=== PATIENT | female | born 2000 | race Caucasian/White ===

== ENCOUNTER 2019-09-28 14:25 | Inpatient (IN) | payer OTHER ==
[~2019-09-28] VITALS: Ht 175.3 cm; Wt 97.1 kg
[~2019-09-28 14:25] MED LIST: ACETAMINOPHEN-1 EAC1 PO; BACTRIM DS TAB1 EACH PO; CEFTIN500 MG PO; CIPRO500 MG PO; CLARITIN10 MG PO; FAMOTIDINE PO; IBUPROFEN 600600 M1 PO; IBUPROFEN200 M2; KEFLEX500 M1 PO; KEFLEX500 MG PO; LACTASE 3000U T1 TA1; MEDROL DOSPAK21 TA1 PO; NORCO 5-325 TA1 EACH PO; PHENERGAN 25 MG25 M1 PO; ZOFRAN ODT4 MG PO
[2019-09-28 14:30] VITALS: BP 123/75
--- NOTE | 2019-09-28 18:35 | NUR ---
[age] YEAR OLD FEMALE ADMITTED FOR RIGHT FOOT WOUND. PT ALERT AND ORIENTED TIMES FOUR. VSS, 100%RA. PT C/O PAIN PRN PAIN MEDICATION GIVEN WITH GOOD RELEIF. PT UP TO BSC WITH ASSIST OF ONE. PT WILL BE NPO AT MIDNIGHT FOR SURGERY IN THE MORNING. PT MOM AT BEDSIDE. WILL CONTINUE TO MONITOR.
[2019-09-28 19:22] VITALS: BP 118/55
[2019-09-28 23:44] VITALS: BP 108/55
[2019-09-29 03:36] VITALS: BP 103/52
[2019-09-29 05:56] LABS: ABSOLUTE NEUTROPHILS 16.5 thou/uL (1.4-8.2); BASOPHILS 0.2 % (0.0-2.0); EOSINOPHILS 0.1 % (0.0-3.0); HEMATOCRIT 32.7 % (37.0-47.0); HEMOGLOBIN 10.8 gm/dL (12.0-15.0); LYMPHOCYTES 5.9 % (24.0-44.0); MONOCYTES 8.9 % (1.0-8.0); PLATELET COUNT 274 thou/uL (150-400); POLYS 84.9 % (36.0-66.0); RBC 3.85 mil/uL (4.20-5.00); RDW 13.4 % (10.5-14.5); WBC 19.5 thou/uL (4.0-11.0)
[2019-09-29 06:07] LABS: CALCIUM 8.4 mg/dL (8.5-10.1); CREATININE 0.6 mg/dL (0.6-1.0); MAGNESIUM 1.9 mg/dL (1.8-2.4); POTASSIUM 3.7 mmol/L (3.5-5.1)
--- NOTE | 2019-09-29 06:34 | NUR ---
ASSUMED CARE AT 1900. PT VERY DROWSY, AROUSEABLE BUT WOULD DRIFT OFF WHILE NURSE SPEAKING TO HER. RIGHT FOOT WOUND VERY WARM AND PINK, WITH 2+ EDEMA; YELLOW WEEPING FROM WOUND ONTO THE DRESSING; PT C/O SEVERE TENDERNESS TO TOUCH. GAVE TRAMADOL ONCE AND IV FENTANYL ONCE. DENIED NAUSEA OR SOB. NPO AT MIDNIGHT FOR ORTHO PROCEDURE THIS AM. NO OTHER CONCERNS, WILL CONTINUE TO MONITOR.
[2019-09-29 07:40] VITALS: BP 117/67
[2019-09-29 15:41] VITALS: BP 103/60
--- NOTE | 2019-09-29 19:34 | NUR ---
ASSISTED PATIENT CARE AT 0700. A/O X4. NO LOOSE STOOL ON THIS SHFIT. STANDBY TO BSC. DENIES PAIN. PROGRESSING TOWARDS POC GOALS.
--- NOTE | 2019-09-29 19:37 | NUR ---
ASSUMED PATIENT CARE AT 0700. A/O X4. PATIENT HAD RIGHT FOOT I&D TODAY AND HAD HBO TREATMENT. PAIN MEDS GIVEN NEEDS. STANDBY TO BSC. RIGHT FOOT ELEVATED. SLOWLY TOWARDS POC GOALS.
[2019-09-29 19:55] VITALS: BP 110/66
[2019-09-29 23:10] LABS: GLYCOHEMOGLOBIN (HGB A1C) 5.6 % (4.8-5.6)
[2019-09-29 23:30] VITALS: BP 113/69
--- NOTE | 2019-09-30 02:03 | NUR ---
PATIENT IS ALERT AND ORIENED. PATIENTS PAIN IS CONTROLLED WITH PAIN MEDICATION. PATIENT PIVIOTS TO BSC. NWB ON RIGHT FOOT. PATIENTS LBM WAS THE 4TH. PATIENT IS RESTING COMFORTABLY IN BED. WCM. PATIENT IS PROGRESSING TO GOALS.
[2019-09-30 03:50] VITALS: BP 107/71
[2019-09-30 06:06] LABS: HEMATOCRIT 31.6 % (37.0-47.0); HEMOGLOBIN 10.1 gm/dL (12.0-15.0); MCH 27.4 pg (26.0-34.0); MCHC 32.1 g/dL (28.0-37.0); MCV 85.4 fL (80.0-100.0); RBC 3.7 mil/uL (4.20-5.00); RDW 13.7 % (10.5-14.5); WBC 17.2 thou/uL (4.0-11.0)
[2019-09-30 06:16] LABS: CALCIUM 8.2 mg/dL (8.5-10.1); CREATININE 0.5 mg/dL (0.6-1.0); POTASSIUM 4.1 mmol/L (3.5-5.1)
[2019-09-30 07:33] VITALS: BP 114/77
--- NOTE | 2019-09-30 11:54 | NUR ---
Nutrition: Assessed due to admitting diagnosis of R foot wound w/ necrotizing fasciitis. Hx tobacco abuse. She is s/p I&D on 09/29 to muscle of R foot wounds and received a HBO treatment. On a regular diet and eating extremely well. 100% of all meals thus far. Educated pt on heightened protein goals, ideally eating 2 protein sources/meal. Explained what counts as protein; pt already aware of protein foods. Also encouraged fruits/vegetables for increased vitamin C intake. Recent 09/29. Pt had no further nutrition questions/concerns. Now informed about alternative menu items if needed. Low nutrition risk.
--- NOTE | 2019-09-30 13:06 | O ---
[facility] [place] [address] OPERATIVE REPORT Name: DRISS FAGAN Room #: 350-P ADM IN M.R.#: [id number] Admission: 09/28/19 Attend Phys: Adrian Chapa MD Discharge: Date of : 99 Report #: [id number] THIS REPORT FOR: //name// CC: GEMINI physician/PCP Adrian Chapa DATE OF SERVICE: 09/29/2019 SERVICE: Orthopedics. FACILITY: [place]. SURGEON: Pascual Bonilla M.D. BALLOON TESTER: Bharati Cavanaugh NP. PREOPERATIVE DIAGNOSES: 1. Right foot abscess. 2. Status post right foot I and D. 3. Possible necrotizing fasciitis, right foot. 4. Cellulitis, right foot and leg. POSTOPERATIVE DIAGNOSES: 1. Right foot abscess. 2. Status post right foot I and D. 3. Possible necrotizing fasciitis, right foot. 4. Cellulitis, right foot and leg. PROCEDURE: Irrigation and debridement down to muscle layer of right foot wound measuring 15 cm x 8 cm as well as second wound measuring 4 cm x 3 cm for a total surface area of 132 square cm. COMPLICATIONS: None. DRAINS: None. SPECIMENS: Tissue sent for permanent culture. FINDINGS: No purulence, no signs of progressive necrosis. HISTORY: The patient is a 19-year-old female who injured her right foot when she dropped a mirror on it about 6-7 days ago. She was treated initially with oral antibiotics when she had some wound issues and then she presented to the [facility] Emergency Room 2 days ago and was taken to the operating room on 09/27/2019 for emergent I and D of her right foot for concerns of necrotizing fasciitis. She had 3 incisions and she had [place] drains placed [facility] [address] [place] [address] OPERATIVE REPORT Name: RYLANDRISS Dennis Room #: 350-P ADM IN M.R.#: [id number] Admission: 09/28/19 Attend Phys: Adrian Chapa MD Discharge: Date of : 99 Report #: [id number] in those and then she was transferred to [facility] because they were interested in starting with hyperbaric treatment. When she arrived yesterday evening, Orthopedics was consulted. I made the decision based on the appearance of the wound and her degree of pain in the arrival admitting diagnoses that careful evaluation of the wound is most appropriate. She and her family were in agreement. Risks, benefits, alternatives and indications of surgery were discussed with her in detail. Risks include but not limited to pain, bleeding, persistent infection, need for further surgery, wound healing complications, joint stiffness as well as severe progression of the disease that could often result in loss of limb as well as mortality. PROCEDURE IN DETAIL: After right lower extremity was correctly identified in preoperative holding area as the operative extremity, the patient was taken to the operating room after placement of single shot regional nerve block. General anesthesia was induced without complication. She was padded appropriately. She was already on antibiotic regimen, so she did not require prophylactic antibiotic dosing. The previous dressing was taken down and the wounds were evaluated. I removed the Domi drain and then removed the stitches, leaving each terminal stitch on either end on all 3 of the incisions. Overall, there is desquamated tissue with an early eschar appearance and the tissue on the dorsum of the foot between the lateral wound and the proximal wound is devitalized. There is no purulence present. There were no fluid pockets. I explored it bluntly, some superficial skin was removed and then used a rongeur to do a light debridement of each of the wound bed down to the muscle layer. I took a tissue specimen, sent that for culture. There was again no purulence. There was no sign of tejal necrosis. There was no foul odor and overall things looked healthy given the condition and the initial presentation of which I saw photographs on her mother's phone. The foot in this current condition is substantially better than it was 2 nights ago when she was taken emergently to the operating room. I then lightly packed gauze in each of the wounds as she was having a fair amount of maceration present and she needed to dry her foot wound bed. The raw tissue was then covered with Xeroform and then we placed a dry sterile dressing on. We awakened the patient from anesthesia and took her to recovery room in stable condition. There were no complications. All counts were correct. <ELECTRONICALLY SIGNED> By: Pascual Bonilla MD 09/30/19 1306 00 10 Pascual Bonilla MD /nt
[2019-09-30 15:17] VITALS: BP 116/70
--- NOTE | 2019-09-30 16:07 | NUR ---
INITIAL ASSESSMENT: MARVIN reviewed chart and spoke with nursing and attending physician. Pt was transferred to [facility] from [facility] for HBO treatment. Pt with right foot wound/cellulitis. Pt is currently on IV abx. Pt had repeat I&D yesterday. Pt does not have health insurance. Referral made to [facility]. MARVIN met with pt at bedside. Introduced role of SW. Pt is alert/orientated x 4. Pt reports she normally lives at home and is independent with ADLs. Pt does not have a PCP. Pt states she has met with [facility]. Pt will need continued HBO treatments. Plan is for pt to discharge home when medically stable. MARVIN is following to assist as needed with discharge planning.
--- NOTE | 2019-09-30 17:35 | NUR ---
NO CHANGE, HBO TREATMENT. SLOWLY TOWARDS POC GOALS.
[2019-09-30 19:25] VITALS: BP 104/63
--- NOTE | 2019-09-30 22:36 | HC ---
[facility] [place] [address] CONSULTATION Name: DRISS FAGAN Room #: 350-P ADM IN M.R.#: [id number] Admission: 09/28/19 Attend Phys: Adrian Chapa MD Discharge: Date of : 99 Report #: [id number] THIS REPORT FOR: //name// CC: GEMINI physician/PCP Adrian Chapa DATE OF SERVICE: 09/28/2019 INFECTIOUS DISEASE CONSULTATION REASON FOR CONSULTATION: Evaluation concerning necrotizing infection, right foot. HISTORY OF PRESENT ILLNESS: The patient is a 19 year old without significant medical history who dropped a mirror on her right foot on 09/24/2019. She was seen in the Emergency Room and placed on Bactrim and cephalexin. No improvement with this and she returned with increased pain, swelling. X-rays failed to identify any bony abnormality. Yesterday, she was taken to surgery where a necrotizing soft tissue infection was identified with evidence of abscess. Cultures were obtained. Placed on vancomycin and Zosyn. She was to be evaluated for HBO therapy. The chamber was down at [facility]; therefore, transferred to [facility] for further treatment. She occasionally smokes cigarettes. No history of diabetes. She has had a history of skin and soft tissue infection with methicillin-susceptible Staphylococcus aureus in the past. Has a history of polysubstance abuse. ALLERGIES: LACTOSE. MEDICATIONS: Vancomycin, Zosyn, enoxaparin, pantoprazole and narcotics for pain. PAST MEDICAL HISTORY: Wrist fracture, dislocated shoulder and soft tissue abscesses. FAMILY HISTORY: Noncontributory. SOCIAL HISTORY: As noted above. HIV testing was obtained at [facility] and is currently pending. REVIEW OF SYSTEMS: Denies any cough, sputum, nausea, vomiting or diarrhea. No dysuria or frequency. PHYSICAL EXAMINATION: VITAL SIGNS: Afebrile and hemodynamically stable. GENERAL: She is lying in bed, had significant amount of pain when she tried to move her right foot. [facility] [address] [place] [address] CONSULTATION Name: DRISS FAGAN Room #: 350-[facility] IN M.R.#: [id number] Admission: 09/28/19 Attend Phys: Adrian Chapa MD Discharge: Date of : 99 Report #: [id number] EYES: Without scleral icterus. MOUTH: Without mucositis. NECK: Supple. LUNGS: Clear. HEART: Regular. ABDOMEN: Soft and nontender. EXTREMITIES: Right lower extremity had 2+ edema below the knee. There was erythema extending from her toes up to her midcalf region. This whole area was exquisitely tender to palpation. She had dressings in place with Domi drain in the lateral foot. Able to sense her toes. Had capillary refill reasonable. Drug screen positive for methamphetamines, benzodiazepines and opiates. LABORATORY STUDIES: Urinalysis unremarkable. White count 15.9 down from 21.9 on admission. Platelets 288,000, hemoglobin 11, creatinine 0.5, lactate 1.4. Blood cultures negative today and cultures of the right foot are pending. IMPRESSION: A 19 year old with necrotizing soft tissue infection of the right foot after injury. 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 Would be concerned about mixed infection including beta hemolytic streptococci. RECOMMENDATIONS: We will continue IV antibiotic therapy with vancomycin, Zosyn and clindamycin. Await cultures performed at [facility]. Wound care evaluation for HBO therapy. Further surgical debridement anticipated for tomorrow. Follow laboratory studies. <ELECTRONICALLY SIGNED> By: Enrique Kyle MD 09/30/19 [id number] Enrique Kyle MD /nt
--- NOTE | 2019-10-01 00:34 | NUR ---
PATIENT IS ALERT AND ORIENTED. PATIENT IS SBA. PATIENT IS ROOM AIR. PATIENTS PAIN IS CONTROLLED WITH PAIN MEDICITON. PATIENTS LBM WAS THE 4TH. PATIENT IS RESTING COMFORTABLY IN BED. WCM. PAITENT IS PROGRESSING TO GOALS. NO TEMP TRANSFER TO 4TH FLOOR. WILL CALL REPORT.
[2019-10-01 01:30] VITALS: BP 108/60
[2019-10-01 01:36] VITALS: BP 108/60
--- NOTE | 2019-10-01 05:19 | NUR ---
PT AOX4. PT REPORTS PAIN 0/10 AT REST AND UP TO 10/10 WITH ACTIVITY IN RIGHT FOOT. PT RECIEVING PRN PO NORCO Q4HR AND PRN PO Q4HR TRAMADOL. PT REPORTS MEDICATIONS EFFECTIVE. PT RIGHT LOWER EXTREMITY ELEVATED. PT REPORTS MEDS EFFECTIVE. PT TOLERATING PO INTAKE WITHOUT ISSUE. PT WITH SUPPORT PERSON, BENITO, AT BEDSIDE. PT TRANSFERS TO BEDSIDE COMMODE WITH STAND BY ASSIST. PT RESTING WITHOUT INTERRUPTION. PT ENCOURAGED TO NOTIFY STAFF FOR ALL NEEDS. BED IN LOWEST POSITION, CALL LIGHT WITHIN REACH, BED ALARM ON. WILL CONTINUE TO MONITOR.
[2019-10-01 05:35] VITALS: BP 111/65
[2019-10-01 07:31] VITALS: BP 112/66
--- NOTE | 2019-10-01 09:58 | HC ---
[facility] [place] [address] CONSULTATION Name: DRISS FAGAN Room #: 437-P ADM IN M.R.#: [id number] Admission: 09/28/19 Attend Phys: Adrian Chapa MD Discharge: Date of : 99 Report #: [id number] THIS REPORT FOR: //name// CC: GEMINI physician/PCP Adrian Chapa DATE OF SERVICE: 09/29/2019 PERSONAL PHYSICIAN: Monika. CHIEF COMPLAINT: Necrotizing soft tissue infection of the right foot. HISTORY OF PRESENT ILLNESS: This is a 19-year-old white female with a history of polysubstance abuse, who supposedly on 09/24/2019 dropped a mirror on her right foot, was seen in the Emergency Department, started on oral antibiotics. The patient had progression of the swelling and pain. The patient yesterday was at [facility] where they were concerned about soft tissue necrotizing infection; however, their hyperbaric oxygen treatment unit was inoperable and the patient was transferred to our facility for evaluation and care of the soft tissue infection of her right foot. The patient is on IV antibiotics at this point in time. The patient is status post OR debridement of the right foot and is now down to evaluation of hyperbaric oxygen therapy as an adjunctive measure to this necrotizing soft tissue infection. I have spoken with the surgeon who stated that she was able to unroof the site of the abscess and infection. There was a clear drainage noted with necrotic tissue and feels that the diagnosis of necrotizing soft tissue infection is consistent. PAST MEDICAL HISTORY: The patient has orthopedic injuries as well as a history of previous methicillin-sensitive Staphylococcus aureus infections. The patient has a history of polysubstance abuse and had positive drug screen for methamphetamines, benzodiazepines and opiates. CURRENT MEDICATIONS: IV vancomycin and Zosyn as well as Lovenox and pain medicines. DRUG ALLERGIES: LACTOSE. SOCIAL HISTORY: The patient has a history of polysubstance abuse. FAMILY HISTORY: Not pertinent to current medical condition. REVIEW OF SYSTEMS: Unobtainable at this point in time because the patient is sedated post-operating room. PHYSICAL EXAMINATION: VITAL SIGNS: Temperature 37.1, pulse 95, respirations 16, BP 117/67. [address] [address] CONSULTATION Name: DRISS FAGAN Room #: 437-P [facility] IN [facility].#: [id number] Admission: 09/28/19 Attend Phys: Adrian Chapa MD Discharge: Date of : 99 Report #: [id number] GENERAL: This is a somewhat sedated white female who is able to answer questions, slightly and states she is in minimal pain at this time; however, it was noted the patient is less than one hour after operative room treatment with sedation. HEENT: Normocephalic, atraumatic. Mucous membranes are somewhat dry. Pupils are round. Sclerae white. TMs are bilaterally clear. Left TM has scar tissue. Right TM does not. NECK: Supple and nontender. LUNGS: Clear. HEART: Regular. ABDOMEN: Soft, nontender. EXTREMITIES: The patient moves all extremities with difficulty. Evaluation of right foot reveals a fresh postoperative dressing to be in place, which is clean, dry and intact. Distal neurovascular is otherwise intact. NEUROLOGIC: Cranial nerves 2-12 grossly intact. Motor and sensory grossly intact. LABORATORY DATA: White count 19.5, hemoglobin 10.8, BUN 7, creatinine 0.6. test was negative. Wound care, hyperbaric oxygen course: I spoke at length with the patient and stated at this time, I think the use of hyperbaric oxygen therapy is an adjunctive treatment and in regards to her necrotizing fasciitis soft tissue infection is appropriate. The patient is agreeable to trying to proceeding with this procedure with hyperbaric oxygen at this time. We will start her on necrotizing fasciitis protocol, which is 2.4 atmospheres absolute for 90 minutes with two air breaks. We will continue this daily on pending how the patient clinically is appearing. IMPRESSION: 1. Necrotizing soft tissue infection of the right foot, status post operative debridement. 2. History of polysubstance abuse. PLAN: The patient will be once again started on the hyperbaric oxygen protocol for necrotizing fasciitis as above. I spoke with Dr. Pascual Bonilla, the orthopedic surgeon who stated at this point in time, he did not feel he was going to need to do further orthopedic surgery; however, we will follow the patient clinically and make decisions appropriately. Continue IV antibiotics per Infectious Disease as well as pain control per the primary care physicians. We will continue to follow the patient. We will continue with the wound care of the patient unless further orthopedic procedure is necessary. <ELECTRONICALLY SIGNED> By: Kedar Ronquillo MD 10/01/19 [id number] Kedar Ronquillo MD /nt
--- NOTE | 2019-10-01 13:23 | NUR ---
WOUND CONSULT; ROUNDING WITH DR WILKINSON AND JEAN LAMB BSN. RIGHT FOOT DIAGNIOSIS OF NECROTIZING FASCIITIS. EXTREMLEY PAINFUL. SOME NECROTIC TISSUE REMAINS. SOME HEALTHY TISSUE NOTED. NON ODOROUS. RECOMMEDNATIONS; HBO STOPPED FOR NOW. CONTINUE CURRENT DRESSING ORDERS. DISCUSSED WITH BIPIN
--- NOTE | 2019-10-01 15:00 | NUR ---
CASE DISCUSSED WITH ATTENDING AND WITH JEAN FROM WOUND CARE AND PT WILL NOT NEED ADDITIONAL HBO TREATMENTS. PT HAVING A GREAT DEAL OF PAIN WITH DRESSING CHANGES AT THIS POINT AND WOULD NOT BE ABLE TO TOLERATE THIS AT HOME DUE TO ALL OF HER PAIN AT THIS TIME.
[2019-10-01 16:50] VITALS: BP 111/72
--- NOTE | 2019-10-01 18:19 | NUR ---
Assumed care of pt at 0700. Dressing on right foot changed per dr order. Dr states no HBO treatments needed. IVF infusing. Right leg to be kept elevated. Pain controlled with prn pain meds. Call light within reach. Will continue to monitor.
[2019-10-01 19:51] VITALS: BP 109/67
[2019-10-02 04:08] VITALS: BP 127/70
[2019-10-02 09:31] VITALS: BP 110/67
--- NOTE | 2019-10-02 09:44 | NUR ---
PATIENT ALERT AND ORIENTED X4. UP TO BSC. C/O PAIN WITH MED GIVEN. SLEPT MOST OF NIGHT.
[2019-10-02 17:30] VITALS: BP 118/76
--- NOTE | 2019-10-02 18:17 | NUR ---
PT CARE ASSUMED AT 0700. A&OX4. PT. WOUND CHANGE DONE. ORDERED IV PUSH MORPHINE TO BE GIVEN WITH WOUND CHANGES AND THEN HYDROCODE WHEN WOUND CHANGE IS DONE. PT. SLEPT MOST OF THE DAY. PAIN CONTROLLED WELL. RIGHT FOOT ELEVATED. IV ANTIBIOTICS RECEIVED. IV FLUSHES AND PATNET. NO REDNESS OR SWELLING. BED IN LOW POSITION, LOCKED, WITH ALARM ON. PT. WANTED TO TAKE A SHOWER TODAY WITH THE HELP OF HER MOTHER BUT MOTHER DID NOT COME. I OFFERED HER TO HELP BUT SHE REFUSED.
[2019-10-02 20:50] VITALS: BP 113/77
[2019-10-03 03:05] VITALS: BP 115/76
[2019-10-03 04:47] LABS: CALCIUM 9.1 mg/dL (8.5-10.1); CREATININE 0.7 mg/dL (0.6-1.0); POTASSIUM 4.3 mmol/L (3.5-5.1)
[2019-10-03 05:08] LABS: HEMATOCRIT 38.2 % (37.0-47.0); MCH 28.2 pg (26.0-34.0); MCHC 32.9 g/dL (28.0-37.0); MCV 85.7 fL (80.0-100.0); RBC 4.46 mil/uL (4.20-5.00); RDW 13.4 % (10.5-14.5); WBC 12.3 thou/uL (4.0-11.0)
[2019-10-03 05:31] LABS: HEMOGLOBIN 12.6 gm/dL (12.0-15.0); PLATELET COUNT 475 thou/uL (150-400)
[2019-10-03 06:30] LABS: ABSOLUTE NEUTROPHILS 6.2 thou/uL (1.4-8.2); METAMYELOCYTES 1 %; PLATELET ESTIMATE NORMAL
--- NOTE | 2019-10-03 07:55 | NUR ---
PT TRANSFERRING TO BEDSIDE COMMODE INDEPENDENTLY AND IS TOLERATING FAIR. TRAMADOL AND LORTAB PROVIDING PAIN RELIEF. RESTING COMFORTABLY. NO NEEDS VOICED. CALL LIGHT WITHIN REACH. WILL CONTINUE TO PROVIDE FREQUENT OBSERVATION.
[2019-10-03 08:25] VITALS: BP 120/81
--- NOTE | 2019-10-03 11:08 | NUR ---
PT CARE RESUMED AT 0700. A&Ox4. DRESSING CHANGE ON R. FOOT DONE. REDNESS IS SPREADING MD NOTIFIED. AWAITING CALL BACK. PT. SLEEPING MOST OF THE DAY AND REQUESETING A SHOWER IN [place] AFTERNOON. IV. IS BURNING THE PT. ASESSED AND IS NOT INFILTRATED. ABX ADMINISTERED. IV. IS PATENT, FLUSHING, WITH NO REDNESS OR EDEMA. BED IS LOCKED IN THE LOW POSITION. PAIN MEDICATIONS ON BOARD FOR DRESSING CHANGES.
[2019-10-03 17:19] VITALS: BP 119/60
[2019-10-03 19:58] VITALS: BP 121/73
[2019-10-04 08:20] VITALS: BP 131/77
[2019-10-04] MEDS ORDERED: MIRALAX17 GM PO (14:58)
[2019-10-04] MEDS ORDERED: HYDROCODON-ACE1 EAC7 PO ×2 (14:58→15:04)
[2019-10-04] MEDS ORDERED: VITAMIN D325 MCG PO (14:59)
[2019-10-04] MEDS ORDERED: DAKIN'S473 M2 TOP (14:59)
[2019-10-04] MEDS ORDERED: PENICILLIN VK500 M1 PO (15:01)
[2019-10-04] MEDS ORDERED: CLEOCIN HCL300 MG PO (15:03)
[2019-10-04 15:10] VITALS: BP 131/77
--- NOTE | 2019-10-04 15:37 | NUR ---
ASSUMED CARE OF THE PT AT 0700. PTS WOUND IS DRY AND INTACT. PTS PAIN IS BEING CONTROLLED BY PAIN MEDICATION. PT USES BEDSIDE COMMODE. PT EXPRESSED THAT THEY WANTED TO LEAVE AMA, EXPLAINED HOW IT WORKED AND ASKED THE DOCTOR TO SPEAK WITH THE PT. PT IS BEING DISCHARGED TO HOME, WITH PRESCRIPTIONS AND BELONGINGS, IV REMOVED. CASE MANAGEMENT IS WORKING ON PTS PRESCRIPTIONS. WILL CONTINUE TO MONITOR THE PT UNTIL DISCHARGED.
--- NOTE | 2019-10-04 16:38 | NUR ---
PT GIVEN [facility]AF[facility] IN [place] [phone], WEB SITE TO SIGN UP IF SHE WISHES TO FOLLOW-UP WITH WOUND CARE CLINIC HERE AND PRESCRIPTION DRUG DISCOUNT CARD. PT'S SCRIPTS EXCEPT FOR NARCOTIC PAIN MED WAS FILLED IN [facility] FOR A TOTAL OF $84.00. PT WAS ASKED WHEN SHE WAS ALONE IF SHE FELT COMFORTABLE WITH THE 2 MEN THAT HAD BEEN IN HER ROOM EARLIER AND ASKED IF SHE NEEDED ANY ASSISTANCE SHE SAID SHE IS FINE AND DOES NOT NEED ANY HELP. SHE SAYS SHE NEEDS TO GET HOME BECUASE OF A FAMILY EMERGENCY BUT DID NOT DISCLOSE WHAT WAS GOING ON.
== END 2019-10-04 13:00 | disposition home or self-care (01) | DRG 853 ==
LOC: 3W 14:25 → 4S 10-01 01:24 → ENTRNSPT 10-04 15:19 → EDTRNSPTSTS 10-04 15:21
PROVIDERS: Hospitalist; Internal Medicine; Nurse Practitioner; ADMIT Internal Medicine
PROC: 0KBV0ZZ Excision of Right Foot Muscle, Open Approach (ICD-10-PCS; principal; 2019-09-29)
DX: A41.9 Sepsis, unspecified organism (principal); M72.6 Necrotizing fasciitis; L02.611 Cutaneous abscess of right foot; L03.115 Cellulitis of right lower limb; F17.210 Nicotine dependence, cigarettes, uncomplicated; F19.10 Other psychoactive substance abuse, uncomplicated; D64.9 Anemia, unspecified; B95.5 Unspecified streptococcus as the cause of diseases classified elsewhere; Z91.011 Allergy to milk products; Z71.6 Tobacco abuse counseling; Z79.899 Other long term (current) drug therapy
CPT/HCPCS: 10080; 10102; 10779; 10879; 50010; 50101; 50386; 57091; 62110; 62900; 64039; 64042; 70005

== ENCOUNTER → 2019-09-30 | Outpatient (CLI) | payer OTHER ==
[~2019-09-30] MED LIST changes: +CLEOCIN HCL300 MG PO; +DAKIN'S473 M2 TOP; +HYDROCODON-ACE1 EAC7 PO; +MIRALAX17 GM PO; +PENICILLIN VK500 M1 PO; +VITAMIN D325 MCG PO
== END ==
LOC: HYPER 08:43
DX: M72.6 Necrotizing fasciitis (principal)

== ENCOUNTER 2021-05-13 20:02 | Emergency (ER) | payer OTHER ==
[~2021-05-13] VITALS: Ht 180.3 cm; Wt 90.7 kg
[2021-05-13] MEDS ORDERED: CEPHALEXIN500 MG PO (21:07)
[2021-05-13 22:00] VITALS: BP 137/86
== END 2021-05-13 22:00 | disposition home or self-care (01) ==
LOC: ER 20:02
DX: L02.611 Cutaneous abscess of right foot (principal); F17.210 Nicotine dependence, cigarettes, uncomplicated; Z91.018 Allergy to other foods